=== PATIENT | female | born 1985 | race American Indian/Alaskan Native ===

== ENCOUNTER 2022-02-28 09:55 | Emergency (ER) | payer MEDICAID ==
[2022-02-28 10:41] VITALS: BP 120/75
[2022-02-28] MEDS ORDERED: CYCLOBENZAPRINE 10 MG TAB PO ONE (18:33)
[2022-02-28] MEDS ORDERED: oxyCODONE /ACETAMINOPHEN 5-325MG TAB PO ONE (18:33)
[2022-02-28] MEDS ORDERED: KETOROLAC 10 MG TAB PO ONE (18:33)
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
== END 2022-02-28 20:24 | disposition home or self-care (01) ==
LOC: ED 09:55
DX: M79.10 Myalgia, unspecified site (principal); R51.9 Headache, unspecified; V89.2XXA Person injured in unspecified motor-vehicle accident, traffic, initial encounter; Y93.89 Activity, other specified; Y92.89 Other specified places as the place of occurrence of the external cause; Y99.8 Other external cause status
CPT/HCPCS: 99282